=== PATIENT | female | born 1940 | race Caucasian/White ===

== ENCOUNTER 2018-08-04 22:38 | Observation (INO) | payer OTHER, MEDICARE ==
--- NOTE | 2018-08-04 23:05 | EDPHY ---
H & P Stated Complaint: difficulty breathing Time Seen by Provider: 08/04/18 22:51 HPI/ROS: Chief Complaint: Shortness of breath HPI: 77-year-old woman with a history of COPD, hypertension, hypothyroidism. She is visiting from [place]. She arrives here 2 days ago. She has been having worsening shortness of breath particularly today. She does not normally wear oxygen. She has been using her inhalers as prescribed. No cough. No fevers or chills. No chest pain. No palpitations. ROS: 10 systems were reviewed and were negative except those elements noted in the HPI. PMH: COPD, hypertension, hypothyroidism Social History: Remote history of smoking, no alcohol, no recreational drug use Family History: non-contributory Physical Exam: Gen: Awake, Alert, No Distress HEENT: Nose: no rhinorrhea Eyes: PERRLA, EOMI Mouth: Moist mucosa Neck: Supple, no JVD Chest: nontender, lungs clear to auscultation Heart: S1, S2 normal, no murmur Abd: Soft, non-tender, no guarding Back: no CVA tenderness, no midline tenderness Ext: no edema, non-tender Skin: no rash Neuro: CN II-XII intact, Sensation grossly intact, Strength 5/5 in bilateral upper and lower extremities - Personal History Current Tetanus/Diphtheria Vaccine: Yes Constitutional: Initial Vital Signs Temperature (C) 36.7 C 08/04/18 22:49 Heart Rate 92 08/04/18 22:49 Respiratory Rate 20 08/04/18 22:49 Blood Pressure 182/93 H 08/04/18 22:49 O2 Sat (%) 90 L 08/04/18 22:49 O2 Delivery Mode Room Air O2 (L/minute) 2.5 Allergies/Adverse Reactions: codeine Allergy (Verified 08/04/18 22:43) Penicillins Allergy (Verified 08/04/18 22:42) scopolamine Allergy (Verified 08/04/18 22:43) Home Medications: Medication Instructions Recorded Losartan Potassium [Cozaar 50 mg 50 mg PO 08/04/18 (*)] Metaproterenol Sulfate 08/04/18 Proair Hfa 08/04/18 Rosuvastatin Calcium 08/04/18 Medical Decision Making ED Course/Re-evaluation: 77-year-old woman with a history of COPD is presenting with shortness of breath and hypoxia. Saturations in the 80s. She is satting in the high 90s on 2 L. She is return lost interest in 2 days. Thinks her hypoxia is secondary to elevation. She is not wheezing. She looks very well. She does need supplemental oxygen. We will try to arrange for home oxygen tonight. Respiratory therapy has been involved. We are unable to get her oxygen tonight. Plan will be for admission to observation for arranging of home oxygen in the morning. I have paged the hospitalist. Patient is currently resting with no complaint. Departure - Departure Disposition: [facility] Inpatient Acute Clinical Impression: COPD (chronic obstructive pulmonary disease), Hypoxemia Condition: Fair Referrals: MELCHOR ACEVEDO [Other] - As per Instructions
[2018-08-04 23:56] LABS: PLATELET COUNT 226 10^3/uL (150-400)
[2018-08-05] MEDS ORDERED: ONDANSETRON DISINTEGRATING 4 MG TAB PO PRN (00:21)
[2018-08-05] MEDS ORDERED: ACETAMINOPHEN 325 MG TAB PO PRN (00:21)
[2018-08-05] MEDS ORDERED: ONDANSETRON 4 MG/2 ML VIAL IVP PRN (00:21)
[2018-08-05] MEDS ORDERED: ALBUTEROL 3 ML DEYVIAL IH PRN (00:21)
--- NOTE | 2018-08-05 07:10 | GHP ---
[f rep st] HISTORY AND PHYSICAL DATE OF ADMISSION: 08/05/2018 SOURCE: Patient provides history, appears reliable. EMR was reviewed and case discussed with ED pro vider. CHIEF COMPLAINT: Shortness of breath. HISTORY OF PRESENT ILLNESS: This is a very pleasant 77-year-old female with past medical history sig nificant for HTN, hypothyroidism, HLD, lung cancer status post wedge resection who presents to the em ergency department today with complaints of increasing dyspnea at rest and on exertion. Patient has recently arrived to [place] in the last several days from [place] and [place]. She is here visiting brenda rodriguez and family. She developed this symptomatic shortness of breath since her arrival. She states "I know it's the altitude." She denies any fevers, chills, cough, rhinorrhea, swelling in her lower extremities or calf pain. No nausea, vomiting, abdominal pain. Patient reports that she simply fee ls short of breath. No palpitations or chest pain are noted. The patient did attempt to use her inh iram without any improvement in her symptoms. Upon arrival to the emergency department and triage, patient was noted to be saturating as low as 80s percent on room air. She did improve to greater than 90% with nasal cannula at 2 L/minute. REVIEW OF SYSTEMS: Ten systems reviewed, negative except as noted above next. ALLERGIES TO: Codeine, penicillin, scopolamine. PAST MEDICAL HISTORY: Significant for benign essential hypertension, hypothyroidism, hyperlipidemia, lung cancer status post wedge resection. PAST SURGICAL HISTORY: Patient reports wedge resection in 2011. FAMILY HISTORY: Negative for any other members with lung disease. SOCIAL HISTORY: Patient lives in [place], [place]. She denies any tobacco, drugs, or alcohol. PHYSICAL EXAMINATION: VITAL SIGNS: Upon arrival to the ED, blood pressure was 182/93, heart rate wa s 92, respiratory rate 20, O2 saturation 98% on room air, temperature is 36.7 Currently available vitals show blood pressure 138/68, heart rate 72, respiratory rate 16, O2 saturat ion 95% on 2 L by nasal cannula with a temperature 36.7. GENERAL: No acute distress. Very pleasant adult female who is resting quietly in bed. She is awake, however, and reports she has trouble slee ping. HEAD: Normocephalic, atraumatic. EYES: Extraocular muscles are grossly intact. Pupils equa l, round, slightly decreased reactivity to light bilaterally, but symmetric. No scleral icterus or c onjunctival injection. ENT: Mucous membranes appear moist. No oropharyngeal erythema or exudate. N o nasal discharge. NECK: Supple. Trachea midline. CV: Regular rate and rhythm. No murmurs, rubs , or gallops appreciated. RESPIRATORY: Unlabored breathing. Lungs are clear to auscultation bilate rally. No wheezes, rales, or rhonchi. Slightly diminished right lower lung base, otherwise clear. ABDOMEN: Positive bowel sounds. Soft, nontender to palpation. No rebound, guarding, or masses appr eciated. : No suprapubic tenderness to palpation. No Fine catheter in place. EXTREMITIES: No c yanosis, clubbing, or edema are appreciated. GENERAL: Patient is pleasant and cooperative. LABORATORY STUDIES: WBC 8.25, H and H are 15.3 and 39.7, MCV 92.1, platelet count is 226, no bands. Sodium is 137, potassium 3.4, chloride 106, CO2 21, anion gap 10, BUN is 23, creatinine 0.8, GFR grea ter than 60, glucose 108, calcium 9.5. ASSESSMENT AND PLAN: A very pleasant 77-year-old female with history of chronic obstructive pulmonar y disease, remote history of lung cancer, hypertension, hypothyroidism, hyperlipidemia who presents t o the emergency department today with complaints of several days of shortness of breath and she has a rrived at altitude. 1. Hypoxia with history of chronic lung disease and wedge resection remotely. The patient reports t hat her symptoms are consistent with a rise in elevation. She has significantly improved with some s upplemental oxygen. Attempts were made to get patient oxygen to discharge home with from the emergen cy department, however, is not possible in the middle of the night. Case Management consultation to assist with arranging home O2, nebulizer available p.r.n. Patient without any evidence of chronic ob structive pulmonary disease exacerbation at this time. Hold off on any steroids or additional medica tions except for patient's home medications. She is on Alupent and has a history of well-controlled chronic obstructive pulmonary disease without any need for oxygen at baseline. 2. Benign essential hypertension. Patient's blood pressures upon arrival were initially quite eleva salvador 182/93. These have since improved and within normal limits. Plan to resume patient's home medic ations once med rec is completed. 3. Hyperlipidemia. Continue statin at discharge. 4. Hypothyroidism. Patient is not currently on any replacement listed on available med rec. Waitin g for this to be completed with Pharmacy in the morning. 5. Fluid, electrolyte, nutrition. Patient with a regular diet ordered. Electrolytes, potassium jus t minimally decreased. We will hold off on replacement. Advance diet as above. 6. Prophylaxis, sequential compression devices. Holding anticoagulation. Anticipating short hospit al stay. Encourage mobilization. CODE STATUS: Full. DISPOSITION: Patient admitted to observation status on the med surg floor pending further assistance of Case Management and disposition team. /[id number]/MODL
[2018-08-05 07:35] VITALS: BP 154/73
--- NOTE | 2018-08-05 09:07 | ASMTCMCOM ---
CM Note CM Note Notes: Met with Pt and chart reviewed for discharge. Kathy is a 77yr old admitted with increase SOB after arriving from [place] to visit her son 2 days ago. Pt with a history of COPD, and HTN. Pt will require oxygen at home and RT has made arrangements with [facility]. Pt will likely discharge home on O2 with son once medically cleared. CM available for needs. PLAN: Home Independently with son. Date Signed: 08/05/2018 09:06 AM Electronically Signed By:Lisa Perkins
[2018-08-05] MEDS ORDERED: [UNRECOGNIZED DRUG - OTHER] PO PRN (10:56)
[2018-08-05] MEDS ORDERED: PSEUDOEPHEDRINE PO PRN (10:56)
--- NOTE | 2018-08-05 12:01 | PDHOMEO2F ---
Home Oxygen Face to Face Home Orders: I certify that a physician or a nurse practitioner or physician's practice assistant has had a [id number] encounter with this patient on the date of this order due to the diagnosis listed, which relates to the primary reason the patient requires home oxygen. Alternative treatments have been tried, or considered, and deemed ineffective. It is anticipated that supplemental oxygen will result in improvement with treatment. Home oxygen qualifying diagnosis: COPD SpO2 on room air (%): 80 Frequency of home oxygen needed: continuous Home oxygen liters per minute: 2 Home oxygen delivery device: nasal cannula Concentrator: Yes E-tanks for mobility and back up: Yes If ordering portable O2, is the patient mobile in the home?: Yes I certify that, based on these findings, the home oxygen is medically necessary for this patient for the following length of time. Length of time home oxygen needed: 1 month
[2018-08-05] MEDS ORDERED: FLUTICASONE/SALMETER 100/50MCG DISKUS IH SCH (21:00)
[2018-08-05] MEDS ORDERED: LOSARTAN POTASSIUM 50 MG TAB PO SCH (21:00)
--- NOTE | 2018-08-06 03:47 | GDS ---
[f rep st] DISCHARGE SUMMARY DISCHARGE DIAGNOSES: 1. Acute on chronic respiratory failure. 2. COPD. 3. Lung cancer status post wedge resection. 4. Hypertension. HISTORY: The patient is a 77-year-old female visiting from [place]. Immediately upon arriving to [place] she has been suffering from shortness of breath. She presented to the emergency room satura ting 80% on room air. Her workup was negative and it was felt to be due to altitude. She was admitte d to observation. Her oxygen saturations did improve during her observation period although still had some intermittent hypoxemia. Home oxygen was ordered. Patient plans to fly home to [place] tomorr ow and will recheck with her physicians there upon arrival. DISCHARGE MEDICATIONS: Please see computerized record for full detailed list. There were no new med ications given at time of hospital discharge. ADDITIONAL DISCHARGE INSTRUCTIONS: 1. Follow up with primary care within 1 week of returning home. 2. Home oxygen 2 L with activity. The patient was seen examined by me on the day of discharge. /[id number]/MODL
[2018-08-06] MEDS ORDERED: LEVOTHYROXINE 75 MCG TAB PO SCH (06:00)
[2018-08-06] MEDS ORDERED: ROSUVASTATIN CALCIUM 10 MG TAB PO SCH (09:00)
[2018-08-06] MEDS ORDERED: METOPROLOL SUCCINATE XR 25 MG TAB PO SCH (09:00)
[2018-08-06] MEDS ORDERED: Umeclidinium Bromide [Incruse Ellipta] 1 PUFF IH SCH (09:00)
== END 2018-08-05 13:34 | disposition home or self-care (01) ==
LOC: F1N 23:59
PROVIDERS: ADMIT Family Medicine; ATTEND Internal Medicine
DX: J96.21 Acute and chronic respiratory failure with hypoxia (principal); J44.9 Chronic obstructive pulmonary disease, unspecified; I10 Essential (primary) hypertension; Z85.118 Personal history of other malignant neoplasm of bronchus and lung; E03.9 Hypothyroidism, unspecified; E78.5 Hyperlipidemia, unspecified
CPT/HCPCS: 99285; G0378